=== PATIENT | female | born 1975 | race Caucasian/White ===

== ENCOUNTER → 2024-05-14 10:52 | Outpatient (REF) | payer BC, SELFPAY | LOC: WDC 10:52 | PROVIDERS: ATTENDING PHYSICIAN Obstetrics & Gynecology; FAMILY PHYSICIAN Internal Medicine | DX: Z12.31 Encounter for screening mammogram for malignant neoplasm of breast (principal) | CPT/HCPCS: 77063; 77067 ==

== ENCOUNTER → 2024-07-15 15:41 | Outpatient (REF) | payer BC, SELFPAY | LOC: MRI 3T 15:41 | PROVIDERS: ATTENDING PHYSICIAN Internal Medicine | DX: R92.2 Inconclusive mammogram (principal); Z80.3 Family history of malignant neoplasm of breast | CPT/HCPCS: 77049; A9585 ==

== ENCOUNTER → 2024-07-29 14:46 | Outpatient (REF) | payer BC, SELFPAY | LOC: WDC 14:46 | PROVIDERS: ATTENDING PHYSICIAN Internal Medicine | DX: R92.8 Other abnormal and inconclusive findings on diagnostic imaging of breast (principal) | CPT/HCPCS: 76642 ==

== ENCOUNTER → 2024-08-05 16:14 | Outpatient (REF) | payer BC, SELFPAY | LOC: RAD 16:14 | PROVIDERS: ATTENDING PHYSICIAN Obstetrics & Gynecology; FAMILY PHYSICIAN Internal Medicine | DX: N92.0 Excessive and frequent menstruation with regular cycle (principal) | CPT/HCPCS: 76830; 76856 ==

== ENCOUNTER → 2024-08-18 08:57 | Outpatient (REF) | payer BC, SELFPAY ==
--- NOTE | 2024-08-18 13:31 | OID.BR.INTR ---
[facility] Breast Navigator - Initial
- -
Date of Contact: 08/18/24
Met with patient. Patient given written information on navigator services available at [facility]. Will follow up as needed per protocol.
== END ==
LOC: WDC 08:57
PROVIDERS: ATTENDING PHYSICIAN Internal Medicine
DX: N63.23 Unspecified lump in the left breast, lower outer quadrant (principal)
CPT/HCPCS: 88305; 19083; 88341; 88342; 88360; A4648

== ENCOUNTER → 2024-09-20 10:39 | Outpatient (REF) | payer BC, SELFPAY | LOC: PAVMRI 10:39 | PROVIDERS: ATTENDING PHYSICIAN Surgery; FAMILY PHYSICIAN Internal Medicine | DX: C50.412 Malignant neoplasm of upper-outer quadrant of left female breast (principal); Z17.0 Estrogen receptor positive status [ER+] | CPT/HCPCS: 88305; 19085; 19287; A4648; A9585 ==

== ENCOUNTER → 2024-10-10 10:35 | Outpatient (REF) | payer BC, SELFPAY | LOC: WDC 10:35 | PROVIDERS: ATTENDING PHYSICIAN Surgery; FAMILY PHYSICIAN Internal Medicine | DX: C50.412 Malignant neoplasm of upper-outer quadrant of left female breast (principal) | CPT/HCPCS: 19285; 38792; 76942; A4648; A9541 ==

== ENCOUNTER 2024-10-11 06:41 | Day surgery (SDC) | payer BC, SELFPAY ==
[2024-10-10 11:34] LABS: Hematocrit 39.2 % (37.0-47.0); Hemoglobin 13.3 g/dL (12.0-16.0); Mean Corp Hgb Conc. 33.9 g/dL (33.0-37.0); Mean Corpuscular Volume 84.3 fL (81.0-99.0); Platelet Count 266 10^3/uL (130-400); Red Cell Dist. Width 12.7 % (11.5-14.5)
[2024-10-10 12:16] LABS: Prealbumin (Transthyretin) 22.6 mg/dl (17.6-36.0)
[2024-10-10 12:27] LABS: ALT (SGPT) 14 U/L (0-35); AST (SGOT) 19 U/L (14-36); Albumin 4.5 g/dl (3.5-5.0); Alkaline Phosphatase 42 U/L (38-126); Blood Urea Nitrogen 9 mg/dl (7-17); Calcium 9.5 mg/dl (8.4-10.2); Carbon Dioxide 28 mmol/L (22-30); Chloride 106 mmol/L (98-107); Glucose 88 mg/dl (70-99); Potassium 4.3 mmol/L (3.5-5.1); Sodium 141 mmol/L (135-145); Total Protein 7.3 g/dl (6.3-8.2); eGFR > 60.00
[2024-10-10 12:28] LABS: Vitamin D, 25-OH*** 53.0 ng/mL (30-80)
[2024-10-10 14:19] VITALS: BMI 22.6
[2024-10-11 13:10] VITALS: BP 105/65
[2024-10-11 13:20] VITALS: BMI 22.6
[2024-10-11] MEDS: TYLENOL 1000 MG PO (13:38)
[2024-10-11] MEDS: NORMOSOL-R/PLASMALYTE-A 1000 IV (13:39)
[2024-10-11] MEDS: LOVENOX 40 MG SC (16:25)
[2024-10-11 18:42] VITALS: BP 105/65; BP 108/69
[2024-10-11 18:45] VITALS: BP 108/65
[2024-10-11 19:00] VITALS: BP 111/73
[2024-10-11 19:15] VITALS: BP 106/69
[2024-10-11 19:30] VITALS: BP 109/64
--- NOTE | 2024-10-18 08:25 | W.IMMPOSTOP ---
Surgical Immed Post Op Note
-
Primary Surgeon: Jarrod
Assisting Surgeon: none
Pre-op Diagnosis: Left breast ca
Post-op Diagnosis: Left breast ca
Procedure Performed: Left localized lumpectomy and sentinel lymph node mapping and biopsy
Anesthesia Type: LMA
Specimen / Cultures: Left lumpectomy, margins, sentinel nodes
Estimated Blood Loss: 6cc
Complications: None
Operative Findings: None
--- NOTE | 2024-10-18 08:33 | OR.RPT ---
Operative Report
Operative Report
Date of surgery: 10/11/2024
Preoperative diagnosis: Left breast carcinoma
Postoperative diagnosis: Left breast carcinoma
Procedure left localized lumpectomy, sentinel lymph node mapping and biopsy
Surgeon: Jarrod
The patient is a 49-year-old female with early stage favorable left breast carcinoma who presents for breast, conservation surgery. 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
placed at the tumor site and technetium radiotracer was injected into the breast parenchyma. On the day of surgery she presented to same-day surgical services where she was prepped. DVT and antibiotic prophylaxis were provided and she was
transferred to the operating room.
In the supine position LMA anesthesia was induced. Left breast was prepped and draped in the usual sterile fashion as was the axilla. All team members performed appropriate timeout procedure.
All tissues were anesthetized with 1% lidocaine plain. Attention was first turned to the axilla where a curvilinear incision was made inferior to the hairline overlying the area of highest external gamma count. Dissection was carried through
clavipectoral fascia using the cautery and a total of 2 sentinel nodes were encountered and excised. Feeding vessels to these nodes were controlled with 3-0 silk tie. After they are removal, there was a greater than 4 fold reduction of background
count. Hemostasis was again verified and Marcaine 0.5% plain was instilled into all tissues. This wound was closed using simple interrupted 3-0 plain on deep intermediate and subcutaneous tissue and skin was closed with a running subcuticular 4-0
Monocryl.
Next the lumpectomy was approached by using the savvy probe to sound down to the reflector. A curvilinear incision was made in the appropriate area and skin flaps were elevated with the cautery. Dissection was carried down to the tumor and signal
and the tumor was widely excised with the cautery. Time out of body was noted and the specimen was oriented for the pathologist. Specimen radiography confirmed the presence of mass clip and reflector within it. Additional margins were harvested
for permanent analysis from the posterior, medial, superior, lateral, inferior, and anterior dimensions. These were oriented as well.
Hemostasis was maintained within the lumpectomy site. Hemoclips were placed in resection cavity and Marcaine 0.5% plain was instilled. This wound was closed in the same manner as the axilla. Surgical glue and sterile compressive dressings were
applied. All sponge needle and instrument counts were correct and the patient was transferred to the recovery room in stable condition thank you
([id number])
[place] Node Bx Breast Cancer
[place] Node Bx Breast Cancer
Operation performed with curative intent: Yes
Tracer(s) to ID [place] Nodes in Non-Neoadjuvant setting: Radioactive Tracer
Tracer(s) to ID [place] Nodes in the Neoadjuvant Setting: N/A
All nodes at end of dye-filled Lymphatic Channel removed: N/A
All Significantly Radioactive Nodes were removed: Yes
All Palpably Suspicious Nodes were Removed: Yes
Bx Proven Pos Nodes Marked Prior to Chemo ID'd & Removed: N/A
== END 2024-10-11 14:55 | disposition home or self-care (01) ==
LOC: SDS 06:41
PROVIDERS: ATTENDING PHYSICIAN Surgery; FAMILY PHYSICIAN Internal Medicine
DX: C50.912 Malignant neoplasm of unspecified site of left female breast (principal); N60.12 Diffuse cystic mastopathy of left breast; D24.2 Benign neoplasm of left breast
CPT/HCPCS: 38525; 19301; 38900; 36415; 76098; 80053; 82306; 84134; 85027; 88305; 88307; 88341; 88342; 93005; A4648; L8000

== ENCOUNTER 2024-10-14 09:28 | Emergency (ER) | payer BC, SELFPAY ==
[2024-10-14 09:29] VITALS: BP 130/91
--- NOTE | 2024-10-14 10:55 | ED.GENMED ---
History of Present Illness
General
Chief Complaint: Post Operative Problem(s)
Source: patient
Exam Limitations: none
Time Seen by Provider: 10/14/24 10:42
History of Present Illness
History of Present Illness:
49-year-old female lumpectomy done 3 days ago. Noted some increased redness pain and a minimal amount of drainage last evening. Came in for evaluation. No systemic symptoms. Denies fever chills or other complaints
Past History
Past History
ED Past Medical History: None
ED Past Surgical History: Gynecological (Lumpectomy)
Review of Systems
Review of Systems
All Other Systems: Not applicable
Constitutional: Denies fever or chills
Phy Exam
Physical Exam
Physical Exam:
GENERAL: Alert and oriented in no apparent distress
CARDIAC: Regular rate and rhythm without any obvious murmurs.
LUNGS: Clear breath sounds,normal
NEUROLOGICAL: Alert and oriented , grossly non-focal
SKIN: Warm and dry, 2 surgical incisions 1 in the left axilla 1 to the left lateral breast. Axillary incision appears well. Healing well. No drainage no erythema. There is mild erythema to the lateral breast incision more at the superior border.
No drainage. Small area of ecchymosis. No dehiscence.
MUSCULOSKELETAL: No edema,no deformity.Good color
PSYCH: Normal and appropriate interaction.
Course
Orders/Labs/Results
Orders:
Orders
10/14/24 11:02
Cephalexin Monohydrate [Keflex] 500 mg PO NOW STA
Vital Signs
Initial and Last Documented VS:
Initial Vital Signs
Temp Pulse Resp BP Pulse Ox
98.4 F 83 18 130/91 100
10/14/24 09:29 10/14/24 09:29 10/14/24 09:29 10/14/24 09:29 10/14/24 09:29
Last Documented Vital Signs
Temp Pulse Resp BP Pulse Ox
98.4 F 83 18 130/91 100
10/14/24 09:29 10/14/24 09:29 10/14/24 09:29 10/14/24 09:29 10/14/24 10:57
MDM/Problems Addressed
Differential Diagnosis Includes:
Discussed with patient's surgeon. Pictures were sent over the [employer] text to the surgeon. Agree with management antibiotics and follow-up.
*Pulse Oximetry
SaO2: 100
Oxygen Mode of Delivery: Room air
Patient hypoxic: no
*Critical Care Note
Total Time (30-74mins, 75-104mins- exclusive of procedures): Not Applicable
Data Reviewed
Review of Other/Old Records Reveals: Operative Reports
Update Note
Update Note:
Discussed with patient's breast surgeon. Pictures were sent to her carefully through [employer] text. Patient was in agreement. Agree with Keflex and follow-up
ED Attending Note
-
Portions of this chart may have been created with voice recognition software.� Occasional wrong word or��sound alike� substitutions may have occurred due to the inherent limitations of voice recognition software.
Discharge Plan
Departure
Patient Disposition: Home (Routine Discharge)
Date of Disposition: 10/14/24
Time of Disposition: 11:32
Patient with high blood pressure during this ER visit?: Yes
Discharge Problem:
Postoperative local cellulitis, Recent lumpectomy
Instructions: Wound Care (DC), BLOOD PRESSURE
Prescriptions:
New
cephalexin 500 mg capsule
500 mg PO Q6H 10 Days Qty: 40 0RF
No Action
omeprazole [Prilosec] 20 mg Capsule,Delayed Release(Dr/Ec)
20 mg PO Q OTHER DAY
B12
500 mcg PO DAILY
fluconazole [Diflucan] 150 mg Tablet
150 mg PO ONCE PRN (Reason: YEAST INFECTION)
cholecalciferol (vitamin D3) [Vitamin D3] 50 mcg (2,000 unit) Capsule
50 mcg PO DAILY
tranexamic acid 650 mg Tablet
1,300 mg PO Q12H PRN (Reason: HEAVY PERIOD)
biotin
1,000 mcg PO DAILY
iron
50 mg PO DAILY
Referrals:
Parveen Fortune MD [Family Provider, Internal Medicine]
Activity Restrictions/Additional Instructions:
Call Dr. Garay Thursday
Return sooner with increased pain increased swelling fever chills or any other concerning symptoms
Interventions
Interventions:
*Risk Screen - Suicide Last Done: 10/14/24 09:29
*General Assessment Last Done: 10/14/24 10:42
*Neglect/Abuse Screening Last Done: 10/14/24 09:29
*ED COVID-19 Vaccine History Last Done: 10/14/24 10:42
*Nursing Disposition Last Done: 10/14/24 12:07
Discharge Date and Time
Discharge Date/Time: 10/14/24 12:08
Print Language: CHINESE
[2024-10-14] MEDS: KEFLEX 500 MG PO (11:29)
== END 2024-10-14 12:08 | disposition home or self-care (01) ==
LOC: EMR 09:28
PROVIDERS: EMERGENCY PHYSICIAN Emergency Medicine; FAMILY PHYSICIAN Internal Medicine
DX: G89.18 Other acute postprocedural pain (principal); L03.112 Cellulitis of left axilla
CPT/HCPCS: 99282